=== PATIENT | female | born 1990 | race Asian ===

== ENCOUNTER → 2020-08-10 | Outpatient (CLI) | payer OTHER ==
[~2020-08-10] MED LIST: CLARITIN 1010 MG/TAB PO; COLACE 100100 MG/CAP PO; MOTRIN 800800 MG/TAB PO; NEWMANS TOP; PERCOCET 325 MG1 TA2 PO; PRENATAL TABLET PO; PROFERRIN ES12 MG PO
== END ==
LOC: DIA.ED 09:24
DX: O24.419 Gestational diabetes mellitus in pregnancy, unspecified control (principal)
CPT/HCPCS: G0108

== ENCOUNTER 2020-10-06 09:35 | Outpatient (CLI) | payer OTHER ==
[~2020-10-06] VITALS: Ht 157.5 cm; Wt 51.4 kg
--- NOTE | 2020-10-06 09:45 | NUR ---
Pt arrives on unit ambulatory with spouse. States regular ctx that began at 7am. Denies LOF, vaginal bleeding, and reports GFM. Changed into a clean gown. EFM and toco applied. VSS. SVE per Kolton Spann RN . Admission assessment completed. Dr. Norton notified. Orders to observe and recheck SVE x 1 hour. Pt updated on POC. No questions or concerns at this time.
[2020-10-06] MEDS ORDERED: COLACE 100100 MG/CAP PO (09:57)
[2020-10-06] MEDS ORDERED: PRENATAL TABLET PO (09:57)
[2020-10-06] MEDS ORDERED: PROFERRIN ES12 MG PO (09:57)
[2020-10-06] MEDS ORDERED: CLARITIN 1010 MG/TAB PO (09:58)
[2020-10-06 10:30] VITALS: BP 111/78; PULSE 85
[2020-10-06 10:45] VITALS: BP 112/75; PULSE 68; TEMP 97.7
--- NOTE | 2020-10-06 10:47 | NUR ---
SVE per Kolton Spann RN unchanged. [facility] Norton returning phone call. Updated on SVE. Reviews FHR strip. Orders to depart with labor precautions.
[2020-10-06 11:00] VITALS: BP 100/67; PULSE 85; TEMP 97.7
[2020-10-06 11:12] VITALS: BP 109/71; PULSE 91
[2020-10-06 11:15] VITALS: BP 109/71; PULSE 91
--- NOTE | 2020-10-06 11:30 | NUR ---
Discharge instructions reviewed with patient and SO who verbalize understanding. Abulatory off unit.
[2020-10-07] MEDS ORDERED: PERCOCET 325 MG1 TA2 PO (18:09)
[2020-10-07] MEDS ORDERED: MOTRIN 800800 MG/TAB PO (18:09)
== END 2020-10-06 11:30 | disposition home or self-care (01) ==
LOC: LDRO 09:35 → LDR 09:48 → LDRO 11:30
DX: O62.9 Abnormality of forces of labor, unspecified (principal); Z3A.39 39 weeks gestation of pregnancy
CPT/HCPCS: OP

== ENCOUNTER 2020-10-06 18:35 | Inpatient (IN) | payer OTHER ==
[2020-10-06] VITALS (18 sets, daily range): BP systolic 99–131; BP diastolic 58–83; PULSE 67–101; TEMP 98
[~2020-10-06] VITALS: Ht 157.5 cm; Wt 51.4 kg
--- NOTE | 2020-10-06 08:15 | NUR ---
This RN receives report. Patient resting and comfortable with epidural. 2044: Ken catheter placed per Barron Trotter. SVE-4/80/-2 and patient repositioned in antolin position.
[~2020-10-06 18:35] MED LIST changes: -MOTRIN 800800 MG/TAB PO; -NEWMANS TOP; -PERCOCET 325 MG1 TA2 PO
--- NOTE | 2020-10-06 18:40 | NUR ---
Pt arrived on unit via wheelchair escorted by and with complaints of contractions every couple minutes. Pt denies any leaking of fluid or vaginal bleeding and reports normal movement. EFM and toco monitors started. Vital signs WNL. SVE by this RN /-2.
[2020-10-06 19:56] LABS: HEMATOCRIT 42.4 % (37.0-47.0); HEMOGLOBIN 14.2 g/dl (12.5-16.0); MEAN CELL VOLUME 70 fl (80.0-100.0); MEAN CORPUSCULAR HEMOGLOBIN 24 pg (27.0-31.0); MEAN CORPUSCULAR HGB CONC 34 g/dl (33.0-37.0); MEAN PLATELET VOLUME 10.7 fl (7.4-10.4); PLATELET COUNT 240 K/mm3 (130-400); RED BLOOD COUNT 6.04 M/mm3 (4.10-5.30); REDCELL DISTRIBUTION WIDTH-CV 14.7 % (11.5-14.5)
--- NOTE | 2020-10-06 20:15 | NUR ---
This RN receives report. Patient resting and comfortable with epidural. 2044: Ken catheter placed per Barron CAMEJO-JOELE and patient in antolin position.
[2020-10-06 20:16] LABS: BAND 6 % (0-10); EOSINOPHIL 1 % (0-4); LYMPHOCYTE 15 % (20.0-51.0); NEUTROPHILS 77 % (42.0-75.2); PLATELET ESTIMATE NORMAL (NORMAL)
[2020-10-07] VITALS (48 sets, daily range): BP systolic 91–138; BP diastolic 56–82; PULSE 69–115; TEMP 97.8–99
--- NOTE | 2020-10-07 00:10 | NUR ---
SVE-8/100/-2 with abner De La Rosa at nurses station and updated and no new orders given.
--- NOTE | 2020-10-07 08:20 | NUR ---
SVE per this RN C/+1. Dr. Norton notified. See physician notification. Pt prepped for delivery. Coached on pushing efforts. 826-This RN begins pushing with patient. Moves vertex well. 906-Dr. Norton at bedside. Begins pushing with patient. Moves vertex well. 911- of viable female infant attended by Dr. Norton. Cord clamped x 2 and cut from umbilicus. dried and placed on maternal abdomen. Care of to Oliver Torres RN. Taken to warmer. See nursery documentation. 914- of placenta. Pitocin bolus infusing per protocol. Fundus firm at umbilicus. Bleeding WNL. Second degree laceration repaired per provider. Pericare performed. Ice pack applied. Cord gasses obtained. Placenta send to pathology. Pt updated on POC. Bed locked in low position. Call light within reach. No questions or concerns at this time.
[2020-10-07 09:46] LABS: UMBILICAL ARTERY ABG PCO2 72.1 mmHg (30-65); UMBILICAL ARTERY ABG PO2 19.2 mmHg (50-75)
[2020-10-07 09:56] LABS: UMBILICAL ARTERY ABG pH 7.1 (7.28-7.45)
[2020-10-07] MEDS ORDERED: PERCOCET 325 MG1 TA2 PO (18:09)
[2020-10-07] MEDS ORDERED: MOTRIN 800800 MG/TAB PO (18:09)
[2020-10-08 08:30] VITALS: BP 108/68; PULSE 99; TEMP 97.6
[2020-10-08 16:30] VITALS: BP 118/71; PULSE 89; TEMP 98
--- NOTE | 2020-10-08 18:40 | NUR ---
Report recieved. Resting in bed at this time. Updated whiteboard and reviewed POC.
[2020-10-08 20:30] VITALS: BP 116/78; PULSE 78; TEMP 98.1
[2020-10-09] MEDS ORDERED: NEWMANS TOP (09:05)
[2020-10-09 09:11] VITALS: BP 117/81; PULSE 70; TEMP 97.7
--- NOTE | 2020-10-09 14:45 | NUR ---
SW informed by nursery nurse that patient and family would like information in regards child applying for medicaid/[place]. SW assisted in obtaining facesheet from patient chart to provide Saturday SW to assist in calling family to provide information in regards to this matter. Patient provided number to case management social worker for assistance on next business day. Nothing further.
== END 2020-10-09 15:00 | disposition home or self-care (01) | DRG 807 ==
LOC: LDRO 18:35 → LDR 18:59 → OB 18:59
PROVIDERS: Obstetrics & Gynecology; ADMIT Obstetrics & Gynecology
PROC: 10E0XZZ Delivery of Products of Conception, External Approach (ICD-10-PCS; principal; 2020-10-06)
PROC: 0KQM0ZZ Repair Perineum Muscle, Open Approach (ICD-10-PCS; 2020-10-06)
PROC: 10907ZC Drainage of Amniotic Fluid, Therapeutic from Products of Conception, Via Natural or Artificial Opening (ICD-10-PCS; 2020-10-06)
DX: O99.824 Streptococcus B carrier state complicating childbirth (principal); Z37.0 Single live birth; Z3A.39 39 weeks gestation of pregnancy; O24.420 Gestational diabetes mellitus in childbirth, diet controlled; O99.02 Anemia complicating childbirth; O70.1 Second degree perineal laceration during delivery; D64.9 Anemia, unspecified
CPT/HCPCS: J2540; J2590; J7120